=== PATIENT | male | born 1995 | race Caucasian/White ===

== ENCOUNTER 2018-01-02 23:33 | Emergency (ER) | payer OTHER | END 2018-01-03 05:00 | disposition home or self-care (01) | LOC: FTE 23:33 | DX: J20.9 Acute bronchitis, unspecified (principal); R07.89 Other chest pain; J45.909 Unspecified asthma, uncomplicated | CPT/HCPCS: 71045; 93005; 99284-25 ==

== ENCOUNTER 2018-01-17 11:20 | Emergency (ER) | payer OTHER | END 2018-01-17 12:39 | disposition home or self-care (01) | LOC: FTE 11:20 | DX: L73.9 Follicular disorder, unspecified (principal); J45.909 Unspecified asthma, uncomplicated | CPT/HCPCS: 99283; Z7502 ==